=== PATIENT | male | born 1985 | race Caucasian/White ===

== ENCOUNTER 2024-06-15 06:36 | Day surgery (SDC) | payer OTHER, SELFPAY | END 2024-06-15 10:43 | disposition home or self-care (01) | LOC: GI 06:36 | PROVIDERS: ATTENDING PHYSICIAN Internal Medicine Gastroenterology | DX: K21.00 Gastro-esophageal reflux disease with esophagitis, without bleeding (principal); K22.89 Other specified disease of esophagus; K44.9 Diaphragmatic hernia without obstruction or gangrene; R12 Heartburn | CPT/HCPCS: 43239; 88305 ==

== ENCOUNTER 2025-06-27 16:46 | Emergency (ER) | payer OTHER, SELFPAY ==
[2025-06-27 16:49] VITALS: BP 149/92
--- NOTE | 2025-06-27 17:21 | ED.GENMED ---
History of Present Illness
General
Chief Complaint: Abdominal Symptoms
Source: patient
Exam Limitations: none
Time Seen by Provider: 06/27/25 17:06
History of Present Illness
History of Present Illness:
39yoM with a history of anxiety and depression presenting for evaluation of abdominal pain. Patient woke up this morning with the pain. Pain is located in the left upper quadrant and radiates to the left flank. Pain has been constant and is
gradually worsening throughout the day today. Pain is worse with movement, sneezing, and deep breathing. He denies any trauma or inciting incident. He has not taken anything OTC for his symptoms. He is recovering from a cold and continues to
have a mild cough. He denies any shortness of breath, fevers, calf pain, leg swelling, urinary symptoms. He smokes 1ppd.
Past History
Past History
ED Past Medical History: None
ED Past Surgical History: Orthopedic and Other (agree with documented pshx)
Social History
Tobacco: Smoker
Alcohol: None
Drug: None
Personal:
Living: with family
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
Family History
Family History: Other (Noncontributory)
Phy Exam
General Physical Exam
General Presentation: well appearing and no apparent distress
General age: appears stated age
General Skin: warm and dry
General Habitus: normal
General Mental: alert
ENT Exam
ENT Exam: normocephalic
Cardiovascular Exam
Cardiovascular Exam: regular rate/rhythm
Pulmonary Exam
Pulmonary Exam: lungs clear, no respiratory distress, no rales, no crackles, no rhonchi, no wheezing and other (+Tenderness to anterior lower L ribcage)
Gastrointestinal Exam
Gastrointestinal Exam: soft, non distended and other (+Tenderness in epigastrium and LUQ regions. Abdomen soft, non-distended. No rebound or guarding. Small area of old ecchymosis noted without other skin changes.)
Neurological Exam
Neurological Exam: alert
[place] Coma Scale
Eye Opening: Spontaneous
Verbal Response: Oriented
Motor Response: Obeys Commands
GCS Total Score: 15
Skin Exam
Skin Exam: normal color and warm/dry
Psychiatric Exam
Psychiatric Exam: normal mood/affect
Course
Orders/Labs/Results
Orders:
Orders
06/27/25 17:20
US Abdomen Complete/Upper Urgent
Comment:
Reason For Exam: LUQ pain
06/27/25 17:34
Complete Blood Count/With Diff Urgent
Comprehensive Metabolic Panel Urgent
D-Dimer Urgent
Lipase Urgent
06/27/25 18:14
CR Ribs-left 3 Vw W/pa Chest Urgent
Comment:
Reason For Exam: L lower rib pain
Abnormal Lab Results
06/27/25
17:34
WBC 12.3 H 10^3/uL
(4.8-10.8)
RBC 4.62 L 10^6/uL
(4.70-6.10)
MCH 31.6 H pg
(27.0-31.0)
Abs Immat Gran (auto) 0.1 H 10^3/uL
(0-0.05)
Absolute Neuts (auto) 7.3 H 10^3/uL
(1.4-6.5)
Absolute Monos (auto) 1.3 H 10^3/uL
(0.1-0.6)
Immature Gran % 0.7 H %
(0-0.5)
Monocytes % 10.9 H %
(1.7-9.3)
Glucose 122 H mg/dl
(70-99)
ALT 55 H U/L
(0-50)
06/27/25 17:34
06/27/25 17:34
Vital Signs
Initial and Last Documented VS:
Initial Vital Signs
Temp Pulse Resp BP Pulse Ox
98.4 F 104 18 149/92 94
06/27/25 16:49 06/27/25 16:49 06/27/25 16:49 06/27/25 16:49 06/27/25 16:49
Last Documented Vital Signs
Temp Pulse Resp BP Pulse Ox
98.4 F 82 23 139/92 97
06/27/25 16:49 06/27/25 18:00 06/27/25 18:00 06/27/25 18:00 06/27/25 17:45
MDM/Problems Addressed
Differential Diagnosis Includes:
39yoM here with LUQ pain that radiates to L flank that started this AM. Worse with movement, sneezing, breathing. HR 104 in triage and oxygen saturation 94%. There is reproducible LUQ/epigastric and L lower rib tenderness on exam. Differential
diagnosis includes but is not limited to: musculoskeletal, rib fracture, pancreatitis, splenomegaly, pneumonia, PE
Initial ED plan: Check abdominal labs, D-dimer, and upper abdominal ultrasound. He declines analgesics.
*Pulse Oximetry
SaO2: 94
Oxygen Mode of Delivery: Room air
Patient hypoxic: no
*Critical Care Note
Total Time (30-74mins, 75-104mins- exclusive of procedures): Not Applicable
Update Note
Update Note:
ALT minimally elevated at 55, remainder of LFTs and lipase normal. D-dimer also normal making PE very unlikely. Ultrasound shows possible fatty liver with no other acute findings. Rib series x-rays obtained which is normal. Suspect
musculoskeletal pain. Also consider early shingles and patient advised to monitor area for a rash. Supportive care discussed. Advised f/u with PCP and ED return precautions reviewed. Patient in agreement with plan and he was discharged in stable
condition.
ED Attending Note
-
Portions of this chart may have been created with voice recognition software.� Occasional wrong word or��sound alike� substitutions may have occurred due to the inherent limitations of voice recognition software.
Discharge Plan
Departure
Patient Disposition: Home (Routine Discharge)
Date of Disposition: 06/27/25
Time of Disposition: 19:45
Patient with high blood pressure during this ER visit?: No
Discharge Problem:
Left upper quadrant abdominal pain
Instructions: Abdominal Pain
Prescriptions:
No Action
ibuprofen 600 MG tablet
600 mg PO Q6HPRN PRN (Reason: pain) Qty: 20 0RF
Referrals:
Nila Montes De Oca MD [Family Provider, Family Practice]
Activity Restrictions/Additional Instructions:
Take Tylenol and ibuprofen as needed for pain. Apply heat to affected area.
Please follow-up with your family doctor. Return to the ER with any new or worsening symptoms.
Interventions
Interventions:
*Risk Screen - Suicide Last Done: 06/27/25 16:49
*General Assessment Last Done: 06/27/25 16:49
*Neglect/Abuse Screening Last Done: 06/27/25 16:49
*ED COVID-19 Vaccine History Last Done: 06/27/25 20:07
*ED Influenza Vaccine History Last Done: 06/27/25 20:07
[facility] Fall Risk Assessment Tool Last Done: 06/27/25 17:41
*Nursing Disposition Last Done: 06/27/25 20:07
ZZ-Uxousm-Rssshwczfc Assessment Last Done: 06/27/25 17:41
Discharge Date and Time
Discharge Date/Time: 06/27/25 20:09
Print Language: KENYAN
[2025-06-27 17:41] VITALS: BMI 33.6
[2025-06-27 17:43] VITALS: BP 148/90
[2025-06-27 17:49] LABS: Hematocrit 41.8 % (39.0-52.0); Hemoglobin 14.6 g/dL (13.0-18.0); Mean Corp Hgb Conc. 34.9 g/dL (33.0-37.0); Mean Corpuscular Volume 90.5 fL (80.0-94.0); Nucleated Red Blood Cells % 0 % (-); Platelet Count 372 10^3/uL (130-400); Red Cell Dist. Width 13.6 % (11.5-14.5)
[2025-06-27 18:00] VITALS: BP 139/92
[2025-06-27 18:04] LABS: ALT (SGPT) 55 U/L (0-50); AST (SGOT) 32 U/L (17-59); Albumin 4.6 g/dl (3.5-5.0); Alkaline Phosphatase 92 U/L (38-126); Blood Urea Nitrogen 12 mg/dl (9-20); Calcium 9.6 mg/dl (8.4-10.2); Carbon Dioxide 26 mmol/L (22-30); Chloride 106 mmol/L (98-107); Estimated Creatinine Clearance > 125 ml/min; Glucose 122 mg/dl (70-99); Lipase 72 U/L (23-300); Potassium 3.7 mmol/L (3.5-5.1); Sodium 137 mmol/L (135-145); Total Protein 7.3 g/dl (6.3-8.2); eGFR > 60.00
[2025-06-27 18:07] LABS: D-Dimer < 0.27 ug/mlFEU (0.00-0.50)
== END 2025-06-27 20:09 | disposition home or self-care (01) ==
LOC: EMR 16:46
PROVIDERS: Physician Assistant; EMERGENCY PHYSICIAN Emergency Medicine
DX: R10.12 Left upper quadrant pain (principal); F17.210 Nicotine dependence, cigarettes, uncomplicated
CPT/HCPCS: 99284; 71101; 76700; 80053; 83690; 85025; 85379